=== PATIENT | male | born 1995 | race African-American/Black ===

== ENCOUNTER 2016-06-26 22:46 | Emergency (ER) | payer MEDICAID, OTHER ==
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
[2016-06-27] MEDS ORDERED: NS 0.9% 1000 ML* 3,000 ML IV ONE ×2 (00:19→00:20)
== END 2016-06-27 00:18 | disposition short-term general hospital (02) ==
LOC: ED 22:46
DX: S11.91XA Laceration without foreign body of unspecified part of neck, initial encounter (principal); S01.311A Laceration without foreign body of right ear, initial encounter; W45.8XXA Other foreign body or object entering through skin, initial encounter; Y93.9 Activity, unspecified; Y92.9 Unspecified place or not applicable; Y99.9 Unspecified external cause status
CPT/HCPCS: 99285